=== PATIENT | female | born 1990 | race Caucasian/White ===

== ENCOUNTER 2021-12-11 15:57 | Outpatient (CLI) | payer OTHER, SELFPAY ==
--- NOTE | ~2021-12-11 | CT_ITS ---
EXAMINATION: CT sinus wo con DATE: 12/11/2021 16:16 INDICATION: Nasal obstruction. TECHNIQUE: Computed tomography (CT) of the paranasal sinuses was performed without intravenous contra st. The dose-length product was 329.94 mGy-cm. Automated exposure control and iterative reconstructio n technique were employed. COMPARISON: None FINDINGS: There is mucosal thickening of the maxillary sinuses with air-fluid level in the left maxil ni sinus. Ostiomeatal units are patent. Rightward nasal septal deviation. No mucoperiosteal reactio n. Mastoids are pneumatized. No depressed skull fractures. IMPRESSION: 1. Maxillary sinusitis, left greater than right. Reviewed, dictated and finalized at location B.
== END 2021-12-11 15:58 | disposition home or self-care (01) ==
DX: J34.89 Other specified disorders of nose and nasal sinuses (principal); J32.0 Chronic maxillary sinusitis
CPT/HCPCS: 70486

== ENCOUNTER 2024-10-11 13:24 | Outpatient (CLI) | payer OTHER, SELFPAY ==
[2024-10-11 14:22] LABS: Hematocrit 37.5 % (37.0-47.0); Hemoglobin 12.9 g/dL (12.0-15.0); Mean Corpuscular HGB Conc 34.4 g/dl (32-36); Mean Corpuscular Hemoglobin 30.5 pg (26-34); Mean Corpuscular Volume 88.7 fl (80-100); Mean Platelet Volume 10.8 fl (7.4-10.4); Platelet Count Result 194 k/mm3 (150-375); Red Blood Count 4.23 M/mm3 (4.2-5.4); Red Cell Distribution Width 14.5 % (11.5-14.5); White Blood Count 3.9 K/mm3 (4.5-10.0)
--- OUTSIDE RECORDS SUMMARY | 2024-10-11 14:58 | XMS_ITS | Clinical Summary ---
Author Organization [facility] Address [address] [address] Phone Care Team Providers Care Fork Assembler Name Role Phone Unavailable Primary Care Provider Unavailabl e Allergies No known active allergies Medications LOW-OGESTREL 0.3-30 MG-MCG Tablet TK 1 T PO D 3 06/03/2019 Active Active Problems Problem Noted Date Diagnosed Date Gastroesophageal reflux disease without esophagi tis 03/10/2016 Physical exam 08/13/2015 Immunizations Immunization Administration Dates Next Due Influenza Vaccine greater than 3 yrs 04/07/2016 Family History Medical History Relation Name Comments No Known Problems Father No Known Problems Mother No Known Problems Sister Relation Name Status Comments Father Alive Mother Alive Sister Alive Social History Tobacco Use Types Packs/Day Years Used Date Smoking Tobacco: Never Smokeless Tobacco: Never Alcohol Use Standard Drinks/Week Comments No 0 (1 standard drink = 0.6 oz pur e alcohol) Comments No Sex and Gender Information Value Date Recorded Sex Assigned at Not on file Legal Sex Female 7:14 PM CDT Gender Identity Not on file Sexual Orientation Not on file Last Filed Vital Signs Vital Sign Reading Time Taken Comments Blood Pressure 104/60 09/14/2021 9:49 AM HVAC JOURNEYMAN Pulse 99 09/14/2021 9:49 AM HVAC JOURNEYMAN Temperature 36.6 C (97.8 F) 09/14/2021 9:49 AM HVAC JOURNEYMAN Respiratory Rate 20 09/14/2021 9:49 AM HVAC JOURNEYMAN Oxygen Saturation 99% 09/14/2021 9:49 AM HVAC JOURNEYMAN Inhaled Oxygen Concentration - - Weight 64.4 kg (142 lb) 09/14/2021 9:49 AM HVAC JOURNEYMAN Height 162.6 cm (5' 4 ) 06/28/2019 3:13 PM HVAC JOURNEYMAN Body Mass Index 24.37 06/28/2019 3:13 PM HVAC JOURNEYMAN Plan of Treatment Health Maintenance Due Date Last Done Comments Hepatitis C Virus (HCV) Screening 1991 TdaP Immunization 1991 Hepatitis B Immunization (1 of 3 - 19+ 3-dose series) 2010 Influenza Immunization (#1) 03/26/202403/26, 04/06/2016, 03/07/2014, Additional history exists SARS-COV-2 Immunization ( season) 2024 08/03/2020, 07/13/2020 Respiratory Syncytial Virus (RSV) Immunization (Adult) (1 - 1-dose 75+ series) 2066 Meningococcal Immunization (ACWY) Aged Out No longer eligible based on patient's age to complete this topic Pneumococcal Immunization Combined Aged Out No longer eligible based on patient's age to complete this topic Rotavirus Immunization Aged Out No lo nger eligible based on patient's age to complete this topic Insurance [facility]
--- OUTSIDE RECORDS SUMMARY | 2024-10-11 14:58 | XMS_ITS | Clinical Summary ---
Author Organization [facility] [address] Address [address] [place] [address] Phone Care Team Providers Care Cosmetic Dentist Name Role Phone Carlos A Salgado MD Primary Care Provider Allergies No known active allergies Medications esomeprazole DR (NexIUM) 40 mg capsule TAKE 1 CAPSULE DAILY 05/24/2017 Active AZURETTE, 28, 0.15-0.02 mgx21 /0.01 mg x 5 per tablet Take 1 tablet by mouth daily. 84 tablet 4 06/06/2018 Active Active Problems Problem Noted Date Diagnosed Date Gastroesophageal reflux disease without esophagi tis 03/10/2016 Immunizations Immunization Administration Dates Next Due Influenza, Trivalent, IM (MDV) 04/07/2016 Surgical History Surgery Date Site/Laterality Comments CHOLECYSTECTOMY 07/26/2009 - 07/25/2010 Medical History Medical History Date Comments Seasonal allergies GERD (gastroesophageal reflux disease) Family History Medical History Relation Name Comments Diabetes Maternal Grandmother Hypertension Maternal Grandmother Breast cancer Mother's Sister Relation Name Status Comments Maternal Grandmother Mother's Sister Social History Tobacco Use Types Packs/Day Years Used Date Smoking Tobacco: Never Smokeless Tobacco: Never Tobacco Cessation:Counseling Given: Yes Alcohol Use Standard Drinks/Week Comments No 0 (1 standard drink = 0.6 oz pur e alcohol) Comments No Sex and Gender Information Value Date Recorded Sex Assigned at Not on file Legal Sex Female 1:46 AM PAPER RULER Gender Identity Not on file Sexual Orientation Not on file Occupation Industry Job Start Date Job End Date RN Not on file Not on file Not on file Obstetrics History Para Term AB IAB SAB Ectopic Multiple Livin g Live Births 0 0 0 0 0 0 0 0 0 0 0 Last Filed Vital Signs Vital Sign Reading Time Taken Comments Blood Pressure 110/80 06/06/2018 2:40 PM PAPER RULER Pulse 60 11/30/2017 9:31 AM CDT Temperature - - Respiratory Rate 16 06/03/2017 2:19 PM PAPER RULER Oxygen Saturation 98% 06/03/2017 2:19 PM PAPER RULER Inhaled Oxygen Concentration - - Weight 66.2 kg (146 lb) 06/06/2018 2:40 PM PAPER RULER Height 165.1 cm (5' 5 ) 06/06/2018 2:40 PM PAPER RULER Body Mass Index 24.3 06/06/2018 2:40 PM PAPER RULER Plan of Treatment Not on file Insurance COMMERCIAL [employer] [facility] Care Teams Cosmetic Dentist Relationship Specialty Start Date End Date Carlos A Salgado MD [address] [address] PCP - General 06/15/15
--- OUTSIDE RECORDS SUMMARY | 2024-10-11 14:58 | XMS_ITS | Referral Summary ---
Author Organization [facility] [address] Address [address] [place] [address] Phone Care Team Providers Care Cuff Runner Name Role Phone Carlos A Salgado MD [...] Next Due Influenza, Trivalent, IM (MDV) 04/07/2016 Social History Tobacco Use Types Packs/Day Years Used Date Smoking Tobacco: Never Smokeless Tobacco: Never Tobacco Cessation:Counseling Given: Yes Alcohol Use Standard Drinks/Week Comments No 0 (1 standard drink = 0.6 oz pur e alcohol) Comments No Sex and Gender Information Value Date Recorded Sex Assigned at Not on file Legal Sex Female 1:46 AM HAND BINDER STRIPPER Gender Identity Not on file Sexual Orientation Not on file Occupation Industry Job Start Date Job End Date RN Not on file Not on file Not on file Last Filed Vital Signs Vital Sign Reading Time Taken Comments Blood Pressure 110/80 06/06/2018 2:40 PM HAND BINDER STRIPPER Pulse 60 11/30/2017 9:31 AM CDT Temperature - - Respiratory Rate 16 06/03/2017 2:19 PM HAND BINDER STRIPPER Oxygen Saturation 98% 06/03/2017 2:19 PM HAND BINDER STRIPPER Inhaled Oxygen Concentration - - Weight 66.2 kg (146 lb) 06/06/2018 2:40 PM HAND BINDER STRIPPER Height 165.1 cm (5' 5 ) 06/06/2018 2:40 PM HAND BINDER STRIPPER Body Mass Index 24.3 06/06/2018 2:40 PM HAND BINDER STRIPPER Plan of Treatment Not on file Insurance COMM[employer]CIAL GENERIC [id number] [place] [address] [facility] Care Teams Cuff Runner Relationship Specialty Start Date End Date Carlos A Salgado MD [address] [address] PCP - General 06/15/15
--- OUTSIDE RECORDS SUMMARY | 2024-10-11 14:58 | XMS_ITS | Clinical Summary ---
Author Organization [facility] Address [address] [place] [address] Care Team Providers Care Seed Potato Arranger Name Role Phone Roland Ward ARMHOLE RAISER LOCKSTITCH-WEIGHT AND BALANCE CONTROL AGENT Primary Care Provider Source Comments [facility],non-owned Affiliates and Associated Physician Practices is amultiple site organization consisting of ambulatory clinics and hospital sitesin [place], [place], [place] and [place]. This disclosure is being madepursuant to the Care Everywhere program and may not contain all information available regarding this patient. Last updated 18.[facility] [employer] Allergies No known active allergies Medications * Be aware that medications may not be up to date on this document. Alwaysverify current medications with the patient. Medication Sig Dispensed Refills Start Date End Date Status etonogestrel (NEXPLANON) 68 MG implant 68 mg by Subdermal route as directed Active Active Problems No known active problems Immunizations Name Administration Dates Next Due INFLUENZA VACCINE, TRIV. (AF LURIA, FLUZONE TRIVALENT; 6MO+) (IIV3) 04/07/2016 Covid [facility] primary monoval ent 12+ yr 0.3mL Purple cap 08/03/2020,07/13/2020 FLU VACCINE TRI IIV3 SPLIT IM (FLUVIRIN) 014,03/21/2013 INFLUENZA VACCINE, CELL CULT URE, QUADR. (FLUCELVAX QUADRIVALENT; 6MO+) (CCIIV4) 04/21/2022 INFLUENZA VACCINE, TRIV. (FL UZONE; FLULAVAL; FLUARIX; AFLURIA TRIVALENT; 6MO+), 0.5 ML (IIV3) 04/06/2016 TDAP (7yrs+) 01/19/2023 Social History Tobacco Use Types Packs/Day Years Used Date Smoking Tobacco: Never Smokeless Tobacco: Never Tobacco Cessation:Counseling Given: Not Answered Alcohol Use Standard Drinks/Week Comments Yes 0 (1 standard drink = 0.6 oz pur e alcohol) 2 drinks per month PHQ-2 Answer Date Recorded PHQ2 TOTAL SCORE 0 01/13/2023 Sex and Gender Information Value Date Recorded Sex Assigned at Not on file Gender Identity Not on file Sexual Orientation Not on file Last Filed Vital Signs Vital Sign Reading Time Taken Comments Blood Pressure 122/80 01/19/2023 1:00 PM CDT Pulse 100 01/19/2023 1:00 PM CDT Temperature 36.6 C (97.8 F) 01/19/2023 1:00 PM CDT Respiratory Rate 16 01/19/2023 1:00 PM CDT Oxygen Saturation 97% 01/19/2023 1:00 PM CDT Inhaled Oxygen Concentration - - Weight 64.4 kg (142 lb) 01/19/2023 1:00 PM CDT Height 162.6 cm (5' 4 ) 01/19/2023 1:00 PM CDT Body Mass Index 24.37 01/19/2023 1:00 PM CDT Plan of Treatment Health Maintenance Due Date Last Done Comments PAP SMEAR 1991 HEPATITIS B VACCINE (1 of 3 - 19+ 3-dose series) 2010 COVID-19 VACCINE ( season) 2024 08/03/2020, 07/13/2020 INFLUENZA VACCINE (#1) 2024 2, 04/07/2016, 04/06/2016, Additional history exists DEPRESSION SCREENING 07/26/2024 01/19/2023 DTAP/TDAP/TD VACCINES (2 - Td or Tdap) 01/19/2033 01/19/2023 ZOSTER VACCINE (1 of 2) 2041 HEPATITIS C SCREENING Completed 01/20/2023 HIV SCREENING Completed 01/20/2023 HIB VACCINE Aged Out No longer eligi ble based on patient's age to complete this topic HPV VACCINE Aged Out No longer eligi ble based on patient's age to complete this topic MENINGOCOCCAL (Group B) VACCINE SHARED DECISION-MAKING Aged Out No longer eligible based on patient's age to complete this topic MENINGOCOCCAL GROUPS A/C/Y/W VACCINE Aged Out No longer eligible based on patient's age to complete this topic PNEUMOCOCCAL VACCINE Aged Out No long er eligible based on patient's age to complete this topic Procedures Procedure Name Priority Date/Time Associated Diagnosis Comments HEPATITIS C ANTIBODY W RFLX PCR Routine 01/20/2023 9:12 AM CDT High risk heterosexual behavior HIV-1 HIV-2 ANTIBODY + HIV P24 AG PANEL Routine 01/20/2023 9:12 AM CDT High risk heterosexual behavior from Last 3 Months or Most Recently Relevant to Health Maintenance Results * HEPATITIS C ANTIBODY W RFLX PCR (01/20/2023 9:12 AM CDT) Hepatitis C Antibody Non Reactive Non Reactive 01/21/2023 9:11 AM CDT [facility] ([facility]) Blood BLOOD SPECIMEN / Unknown Lab Venipuncture / Unknown 01/20/2023 9:12 AM CDT 01/20/2023 9:40 AM CDT Narrative [facility] ([facility]) - 01/21/2023 9:11 AM CDT Performed at: [facility] [address] [place], [place] [id number] Hospital Aide: Kiko Hines PhD, Phone: [phone] Roland Ward ARMHOLE RAISER LOCKSTITCH-WEIGHT AND BALANCE CONTROL AGENT LAB - CHEMISTR Y ORDERABLES [facility] ([facility]) [address] [place] [address], [facility] * HIV-1 HIV-2 ANTIBODY + HIV P24 AG PANEL (01/20/2023 9:12 AM CDT) HIV Antigen/Antibod y 1 & 2 Non-reacti ve Non-react aidan 01/20/2023 10:42 AM CDT [facility] Comment:No Laboratory eviden ce of HIV infection. Blood BLOOD SPECIMEN / Unknown Lab Venipuncture / Unknown 01/20/2023 9:12 AM CDT 01/20/2023 9:40 AM CDT Roland [facility]IVER[facility] LAB - CHEMISTR Y ORDERABLES [facility] [address] [place] [address], [facility] [phone] from Last 3 Months or Most Recently Relevant to Health Maintenance Care Teams Seed Potato Arranger Relationship Specialty Start Date End Date Roland Ward APRN-CNP PCP - General Nurse Practitioner Family 11/26/22
[2024-10-11 15:01] LABS: Potassium 3.5 mmol/L (3.4-5.0)
[2024-10-11 15:04] LABS: Alanine Aminotransferase 13 U/L (6-35); Albumin Level 4.8 g/dL (3.5-5.1); Alkaline Phosphatase 56 U/L (38-126); Anion Gap 18 mmol/L (4-12); Aspartate Amino Transferase 27 U/L (14-36); Bilirubin,Total 0.9 mg/dL (0.2-1.3); Blood Urea Nitrogen 13 mg/dL (7-17); Carbon Dioxide 17 mmol/L (22-30); Chloride 110 mmol/L (98-107); Cholesterol 141 mg/dL (0-200); Estimated Glomerular Filt Rate > 60; Glucose 77 mg/dL (65-110); HDL Direct 45 mg/dL; Sodium 145 mmol/L (137-145); Triglycerides 54 mg/dL (<150)
[2024-10-11 15:14] LABS: LDL Cholesterol Direct 60 mg/dL
== END 2024-10-11 13:25 | disposition home or self-care (01) ==
LOC: ANHLAB 13:26
PROVIDERS: PCP Nurse Practitioner Adult Health; Visit Provider Nurse Practitioner Adult Health
DX: Z00.00 Encounter for general adult medical examination without abnormal findings (principal)
CPT/HCPCS: 36415; 80053; 80061; 84439; 84443; 85027

== ENCOUNTER 2024-10-18 16:00 | Outpatient (CLI) | payer OTHER, SELFPAY ==
--- OUTSIDE RECORDS SUMMARY | 2024-10-18 17:04 | XMS_ITS | Clinical Summary ---
Author Organization [facility] Address [address] [facility] [place] [address] Care Team Providers Care Car Construction Superintendent Name Role Phone Roland Ward INSPECTOR WELDED PARTS-SUPERVISOR CHLORINE LIQUEFACTION Primary Care Provider Source Comments [facility],non-owned Affiliates and Associated Physician Practices is amultiple site organization consisting of ambulatory clinics and hospital sitesin [place], [place], [place] and [place]. This disclosure is being madepursuant to the Care Everywhere program and may not contain all information available regarding this patient. Last updated 18.[facility] Allergies No known active allergies Medications * [...] LURIA, FLUZONE TRIVALENT; 6MO+) (IIV3) 04/07/2016 Covid [employer] primary monoval ent 12+ yr 0.3mL Purple [...] 9:11 AM CDT [facility] ([facility]) Blood BLOOD SPECIMEN / Unknown Lab Venipuncture / Unknown 01/20/2023 9:12 AM CDT 01/20/2023 9:40 AM CDT Narrative [facility] ([facility]) - 01/21/2023 9:11 AM CDT Performed at: [facility] [address] [place], [place] [id number] Management Internship: Kiko Hines PhD, Phone: [phone] Roland Ward INSPECTOR WELDED PARTS-SUPERVISOR CHLORINE LIQUEFACTION LAB - CHEMISTR Y ORDERABLES [facility] ([facility]) [address] [place] [address], [facility] * HIV-1 HIV-2 ANTIBODY + HIV P24 AG PANEL (01/20/2023 9:12 AM CDT) HIV Antigen/Antibod y 1 & 2 Non-reacti ve Non-react aidan 01/20/2023 10:42 AM CDT [facility] Comment:No Laboratory eviden ce of HIV infection. Blood BLOOD SPECIMEN / Unknown Lab Venipuncture / Unknown 01/20/2023 9:12 AM CDT 01/20/2023 9:40 AM CDT Roland VIVEROS LAB - CHEMISTR Y ORDERABLES [facility] [address] [place] [address], [facility] [phone] from Last 3 Months or Most Recently Relevant to Health Maintenance Care Teams Car Construction Superintendent Relationship Specialty Start Date End Date Roland Ward APRN-CNP PCP - General Nurse Practitioner Family 11/26/22
--- OUTSIDE RECORDS SUMMARY | 2024-10-18 17:04 | XMS_ITS | Clinical Summary ---
Author Organization [facility] [address] Address [address] [place] [address] Phone Care Team Providers Care Recycling Manager Name Role Phone Carlos A Salgado MD Primary Care Provider [phone] Allergies No known active allergies Medications esomeprazole [...] on file Legal Sex Female 1:46 AM PACKING ATTENDANT Gender Identity Not on file Sexual Orientation [...] Comments Blood Pressure 110/80 06/06/2018 2:40 PM PACKING ATTENDANT Pulse 60 11/30/2017 9:31 AM CDT Temperature - - Respiratory Rate 16 06/03/2017 2:19 PM PACKING ATTENDANT Oxygen Saturation 98% 06/03/2017 2:19 PM PACKING ATTENDANT Inhaled Oxygen Concentration - - Weight 66.2 kg (146 lb) 06/06/2018 2:40 PM PACKING ATTENDANT Height 165.1 cm (5' 5 ) 06/06/2018 2:40 PM PACKING ATTENDANT Body Mass Index 24.3 06/06/2018 2:40 PM PACKING ATTENDANT Plan of Treatment Not on file Insurance COMMERCIAL [employer] [facility] H[facility]PPO Address: [address] [address] [facility] H[facility]/PPO Address: [address] [address] Care Teams Recycling Manager Relationship Specialty Start Date End Date Carlos A Salgado MD [address] [address] PCP - General 06/15/15
--- OUTSIDE RECORDS SUMMARY | 2024-10-18 17:04 | XMS_ITS | Continuity of Care Document ---
Author Organization [facility] Address [address] [facility] [address] [place] [address] Phone Care Team Providers Care Equipment Operat0R Name Role Phone Jluis JACOBSON CLERICAL STOCK INSPECTOR, Barbara Unavailable Unavailable Advance Directives Directive Yes / No Effective Date File Name No Information Encounters Encounter Description Practice Location Reason(s) For Visit Diagnoses Date Provider Providers Copied on Encounter [facility], [address] [facility] [address], [place], [place], [id number], tel:[phone] [address] [facility] [address] No Information 2 Jluis JACOBSON Barbara. [address] [facility], [facility] [address], [place], [address], [place]. tel:[phone] Family History Family Member Type Diagnosis Age At Onset No Information Payers Payer name Insurance type Covered republican ID Authoriza tion(s) No Information Social History Type Description Quantity Date Captured Comments Sex Female Smoking Status No Information Chief Complaint And Reason For Visit No Information Reason For Referral Reason For Referral No Information History Of Present Illness Encounter Date Complaint History Of Prese nt Illness No Information Functional Status Date Functional Assessmen t No Information Instructions Date Instruction Additional Infor mation No Information Assessments Type Assessment Date No Information Patient Care Teams Name Effective Dates (start - stop) Status Members No Information
--- OUTSIDE RECORDS SUMMARY | 2024-10-18 17:04 | XMS_ITS | Referral Summary ---
Author Organization [facility] [address] :[address] Address [address] [place] [address] Phone Care Team Providers Care Hardware Designer Name Role Phone Carlos A Salgado MD [...] on file Legal Sex Female 1:46 AM SCROLL MACHINE OPERATOR Gender Identity Not on file Sexual Orientation Not on file Occupation Industry Job Start Date Job End Date RN Not on file Not on file Not on file Last Filed Vital Signs Vital Sign Reading Time Taken Comments Blood Pressure 110/80 06/06/2018 2:40 PM SCROLL MACHINE OPERATOR Pulse 60 11/30/2017 9:31 AM CDT Temperature - - Respiratory Rate 16 06/03/2017 2:19 PM SCROLL MACHINE OPERATOR Oxygen Saturation 98% 06/03/2017 2:19 PM SCROLL MACHINE OPERATOR Inhaled Oxygen Concentration - - Weight 66.2 kg (146 lb) 06/06/2018 2:40 PM SCROLL MACHINE OPERATOR Height 165.1 cm (5' 5 ) 06/06/2018 2:40 PM SCROLL MACHINE OPERATOR Body Mass Index 24.3 06/06/2018 2:40 PM SCROLL MACHINE OPERATOR Plan of Treatment Not on file Insurance COMMERCIAL GENERIC [id number] [place] [address] [facility] HMO/PPO Address: [place] [address] [facility] HMO/PPO Address: [facility] [address] [place] [address] Care Teams Hardware Designer Relationship Specialty Start Date End Date Carlos A Salgado MD [address] [address] PCP - General 06/15/15
--- OUTSIDE RECORDS SUMMARY | 2024-10-18 17:04 | XMS_ITS | Clinical Summary ---
Author Organization [facility] Address [address] [address] Phone Care Team Providers Care Automation Engineering Manager Name Role Phone Unavailable Primary Care Provider [...] Comments Blood Pressure 104/60 09/14/2021 9:49 AM OPTICAL SCIENTIST Pulse 99 09/14/2021 9:49 AM OPTICAL SCIENTIST Temperature 36.6 C (97.8 F) 09/14/2021 9:49 AM OPTICAL SCIENTIST Respiratory Rate 20 09/14/2021 9:49 AM OPTICAL SCIENTIST Oxygen Saturation 99% 09/14/2021 9:49 AM OPTICAL SCIENTIST Inhaled Oxygen Concentration - - Weight 64.4 kg (142 lb) 09/14/2021 9:49 AM OPTICAL SCIENTIST Height 162.6 cm (5' 4 ) 06/28/2019 3:13 PM OPTICAL SCIENTIST Body Mass Index 24.37 06/28/2019 3:13 PM OPTICAL SCIENTIST Plan of Treatment Health Maintenance Due Date [...] patient's age to complete this topic Insurance [facility]
[2024-10-18 19:07] LABS: Anion Gap 9 mmol/L (4-12); Blood Urea Nitrogen 12 mg/dL (7-17); Calcium 8.9 mg/dL (8.4-10.2); Carbon Dioxide 24 mmol/L (22-30); Chloride 107 mmol/L (98-107); Estimated Glomerular Filt Rate > 60; Glucose 94 mg/dL (65-110); Sodium 140 mmol/L (137-145)
== END 2024-10-18 16:01 | disposition home or self-care (01) ==
LOC: ANHBWCLAB 16:01
PROVIDERS: PCP Nurse Practitioner Adult Health; Visit Provider Nurse Practitioner Adult Health
DX: E87.8 Other disorders of electrolyte and fluid balance, not elsewhere classified (principal)
CPT/HCPCS: 36415; 80048